=== PATIENT | female | born 1975 | race Caucasian/White ===

== ENCOUNTER 2017-01-04 18:55 | Emergency (ER) | payer MEDICAID ==
[2017-01-04 19:00] VITALS: O2SAT 99
--- NOTE | 2017-01-04 19:17 | EDPHY ---
H & P Stated Complaint: Dizzy, weakness, night sweats x 2 weeks Time Seen by Provider: 01/04/17 19:16 HPI/ROS: CHIEF COMPLAINT: Anxiety, generalized weakness HISTORY OF PRESENT ILLNESS: The patient presents to the ED with a 2 day history of episodic anxiety and generalized weakness. The patient is currently staying in a half-way house and has been there for the past 2 months. She does have a remote history of alcohol dependence and alcohol withdrawal but reports she has not had a drink in over 2 months. The patient denies any fever, cough, congestion, abdominal pain, vomiting or diarrhea. The patient has been compliant with her regular medications. The patient denies any fall or trauma. She has no complaints of an acute headache or acute neurologic symptoms. REVIEW OF SYSTEMS: A comprehensive 10 point review of systems is otherwise negative aside from elements mentioned in the history of present illness. Source: Patient Exam Limitations: No limitations - Personal History LMP (Females 10-55): 8-14 Days Ago Current Tetanus/Diphtheria Vaccine: Yes Current Tetanus Diphtheria and Acellular Pertussis (TDAP): Yes Tetanus Vaccine Date: < 10 YEARS - Medical/Surgical History Hx Asthma: No Hx Chronic Respiratory Disease: No Hx Diabetes: No Hx Cardiac Disease: No Hx Renal Disease: No Hx Cirrhosis: No Hx Alcoholism: Yes Hx HIV/AIDS: No Hx Splenectomy or Spleen Trauma: No Other PMH: HTN/depression, ALCOHOLIC - Social History Smoking Status: Never smoked - Physical Exam Exam: General Appearance: Alert, slightly anxious Eyes: Pupils equal and round no pallor or injection ENT, Mouth: Mucous membranes moist Respiratory: There are no retractions, lungs are clear to auscultation Cardiovascular: Regular rate and rhythm Gastrointestinal: Abdomen is soft and nontender, no masses, bowel sounds normal Neurological: A&O, normal motor function, normal sensory exam, normal cranial nerves Skin: Warm and dry, no rashes Musculoskeletal: Neck is supple nontender Extremities: symmetrical, full range of motion Constitutional: Initial Vital Signs Temperature (C) 36.8 C 01/04/17 18:56 Heart Rate 93 01/04/17 18:56 Respiratory Rate 18 01/04/17 18:56 Blood Pressure 115/92 H 01/04/17 18:56 O2 Sat (%) 99 01/04/17 18:56 O2 Delivery Mode Room Air Allergies/Adverse Reactions: No Known Allergies Allergy (Verified 06/08/14 12:37) Home Medications: Medication Instructions Recorded Hydrochlorothiazide 25 mg PO DAILY 11/02/12 [Hydrochlorothiazide 25 MG (RX)] Metoprolol Succinate 50 mg PO DAILY #7 tab.er.24h 11/02/12 Venlafaxine Xr [Effexor Xr 75MG 150 mg PO DAILY #7 cap 12/26/12 (RX)] LORazepam [Ativan] 1 mg PO Q8 PRN #4 tab 06/08/14 Hydrocodone/APAP 5/325 [[place] 1 - 2 tab PO Q4 #13 tab 01/14/16 5/325 (RX)] LORazepam [Ativan] 1 mg PO BID PRN #10 tab 01/04/17 Medical Decision Making ED Course/Re-evaluation: The patient presents to the ED with likely situational anxiety. She is well- appearing with stable vital signs. She has no clinical evidence of pneumonia, upper respiratory infection, an acute abdomen or acute neurologic condition. The patient was given 1 mg of oral Ativan. The patient was re-evaluated at 8:30 p.m. and is currently feeling better. At this point time I do feel she can safely be discharged home. I will provide her a short course of Ativan. Would clearly like her to return to the emergency department for any fever, difficulty breathing, pain or worsening symptoms. Differential Diagnosis: Differential diagnosis considered includes influenza, viral syndrome, anxiety, dehydration - Data Points Medications Given: Discontinued Medications Lorazepam (Ativan) 1 mg PO ONCE ONE Stop: 01/04/17 19:24 Last Admin: 01/04/17 19:31 Dose: 1 mg Departure - Departure Disposition: Home, Routine, Self-Care Clinical Impression: Anxiety Condition: Good Instructions: Anxiety (ED) Additional Instructions: 1. Please use Ativan as needed for anxiety for next 2 days. 2. Please return to the ED for fever, pain, difficulty breathing, worsening symptoms or other concerns. 3. Please follow up with your regular physician as needed. Referrals: Sandra Leigh, PAC [Primary Care Provider] - As per Instructions
[2017-01-04] MEDS ORDERED: LORazepam 1 MG TAB PO ONE (19:23)
[2017-01-04 20:41] VITALS: BP 132/91; PULSE 85; RESP 20; TEMP 98.1
== END 2017-01-04 20:40 | disposition home or self-care (01) ==
DX: F41.9 Anxiety disorder, unspecified (principal); I10 Essential (primary) hypertension

== ENCOUNTER 2017-03-28 08:53 | Emergency (ER) | payer MEDICAID ==
--- NOTE | 2017-03-28 09:04 | EDPHY ---
H & P Time Seen by Provider: 03/28/17 09:02 HPI/ROS: CHIEF COMPLAINT: Influenza like illness symptoms HISTORY OF PRESENT ILLNESS: 41-year-old immunocompetent female complaining of 2 days of influenza like symptoms including nonproductive cough, myalgias , congestion, subjective fever , chills. No rhinorrhea. No abdominal pain. No chest pain. No back pain. No flank pain. No urinary abnormality. No rash. No headache. No nuchal rigidity. She is currently living in a [facility]pc house and notes that they recommend she come to the ER to get tested as well as there are numerous female there including a female PRIMARY CARE PROVIDER: REVIEW OF SYSTEMS: A ten point review of systems was performed and is negative with the exception of the items mentioned in the HPI PAST MEDICAL & SURGICAL HISTORY: diagnosed 2 days ago with influenza SOCIAL HISTORY: nonsmoker. . Currently living in a [facility]pc house PHYSICAL EXAM (Prior to examination, patient consented to physical exam, hands were washed and my usual and customary physical exam procedures followed) 1) GENERAL: Well-developed, well-nourished, alert and oriented. Appears nontoxic. 2) HEAD: Normocephalic, atraumatic 3) HEENT: Pupils equal, round, reactive to light bilaterally. Sclera anicteric. Nasopharynx, oropharynx, clear, no lesions. Ears bilaterally with normal tympanic membranes. 4) NECK: Full range of motion, no meningeal signs. 5) LUNGS: Clear auscultation bilaterally, no wheezes, no rhonchi, no retractions. 6) HEART: Regular rate and rhythm, no murmur, no heave, no gallop. 7) ABDOMEN: No guarding, no rebound, no focal tenderness, negative McBurney's, unable to elicit any abdominal pain on exam, 8) MUSCULOSKELETAL: No peripheral edema or discoloration. 9) BACK: No CVA tenderness. 10) SKIN: No rash, no petechiae. 11) Psychiatric: Patient is oriented X 3, there is no agitation. Answering questions appropriately DIFFERENTIAL DIAGNOSIS: in no particular include but not limited to viral URI , meningitis, influenza, pneumonia, bronchitis Smoking Status: Never smoked Constitutional: Initial Vital Signs Temperature (C) 37.4 C 03/28/17 08:55 Heart Rate 96 03/28/17 08:55 Respiratory Rate 14 03/28/17 08:55 Blood Pressure 132/96 H 03/28/17 08:55 O2 Sat (%) 95 03/28/17 08:55 O2 Delivery Mode Room Air Allergies/Adverse Reactions: No Known Allergies Allergy (Verified 06/08/14 12:37) Home Medications: Medication Instructions Recorded Hydrochlorothiazide 25 mg PO DAILY 11/02/12 [Hydrochlorothiazide 25 MG (RX)] Metoprolol Succinate 50 mg PO DAILY #7 tab.er.24h 11/02/12 Venlafaxine Xr [Effexor Xr 75MG 150 mg PO DAILY #7 cap 12/26/12 (RX)] LORazepam [Ativan] 1 mg PO Q8 PRN #4 tab 06/08/14 Hydrocodone/APAP 5/325 [[place] 1 - 2 tab PO Q4 #13 tab 01/14/16 5/325 (RX)] LORazepam [Ativan] 1 mg PO BID PRN #10 tab 01/04/17 Albuterol [Proventil Inhaler HFA 1 - 2 puffs IH Q4PRN PRN #1 mdi 03/28/17 (*)] Benzonatate [Tessalon Pearles (RX)] 200 mg PO TID PRN #15 cap 03/28/17 Oseltamivir Phosphate [Tamiflu] 75 mg PO BIDMEAL 5 Days 03/28/17 MDM/Departure - [facility] ED Course/Re-evaluation: The patient does not appear septic. Doubt sepsis. Doubt meningitis. Influenza nasal swab has been obtained and was informed at 10:25 a.m. that rapid influenza testing is no longer performed by laboratory and that results may be delayed for several hours. Her was diagnosed with influenza 2 days ago and she is currently symptomatic with influenza like illness symptoms. I think that empiric treatment is appropriate for this patient. I do not think that chest x-ray is indicated as she has her lungs are clear and she is maintain normal saturations. I do not think that lumbar puncture is indicated as I doubt meningitis. She feels comfortable being discharged with my usual and customary influenza like illness precautions. All questions and concerns addressed by myself. We will have the patient contact the emergency department for results. - Depart Disposition: Home, Routine, Self-Care Clinical Impression: Exposure to influenza, Influenza-like illness Condition: Good Instructions: Influenza (ED) Additional Instructions: Return to the emergency department immediately for change in breathing habits, change in voice, change in swallowing habits, change in mental status, or any other symptoms that concern you. Prescriptions: Albuterol [Proventil Inhaler HFA (*)] 1 - 2 puffs IH Q4PRN PRN #1 mdi PRN Reason: Cough, Moderate Benzonatate [Tessalon Pearles (RX)] 200 mg PO TID PRN #15 cap PRN Reason: Cough, Moderate Oseltamivir Phosphate [Tamiflu] 75 mg PO BIDMEAL 5 Days Referrals: Sandra Leigh, PAC [Primary Care Provider] - 2-3 days, call for appt.
[2017-03-28 11:23] VITALS: BP 130/90; PULSE 87; RESP 15; TEMP 98.8; O2SAT 98
== END 2017-03-28 11:23 | disposition home or self-care (01) ==
DX: Z20.828 Contact with and (suspected) exposure to other viral communicable diseases (principal)

== ENCOUNTER 2017-12-29 10:50 | Emergency (ER) | payer MEDICAID ==
[2017-12-29 11:00] VITALS: RESP 16; TEMP 98.1; O2SAT 97
--- NOTE | 2017-12-29 13:10 | EDPHY ---
H & P Time Seen by Provider: 12/29/17 12:10 HPI/ROS: CHIEF COMPLAINT: Anxiety HISTORY OF PRESENT ILLNESS: 42-year-old female with a history of anxiety presents with increased anxiety. She awoke at 4:00 a.m. with dizziness, vomiting and anxiety. The anxiety was moderate to severe and unrelenting. Unable to sleep. The symptoms are typical of her usual anxiety attacks. She takes Effexor daily, with some relief of anxiety. She is scheduled to see Dr. Cohen at [facility] for further eval of anxiety on 01/15/2018. She also has nasal pain and intermittent nosebleeds, after having a nasal cannulae placed several weeks ago. REVIEW OF SYSTEMS: Constitutional: No fever, no chills Eyes: No visual changes Respiratory: No cough, no shortness of breath Cardiac: No chest pain Gastrointestinal: no abdominal pain Genitourinary: no dysuria Musculoskeletal: No leg pain or swelling Skin: No rash Neurological: No headache, no weakness Past Medical/Surgical History: Anxiety disorder Social History: Sober for 2 years Smoking Status: Never smoked Physical Exam: General Appearance: Alert, pleasant Eyes: Pupils equal and round, no conjunctival pallor ENT, Mouth: nasal septum is erythematous Neck: Normal inspection Respiratory: Lungs are clear to auscultation Cardiovascular: Regular rate and rhythm Gastrointestinal: Abdomen is soft and nontender Neurological: A&O, nonfocal exam Skin: Warm and dry, no rash Extremities: Normal inspection Psychiatric: anxious Constitutional: Initial Vital Signs Temperature (C) 36.7 C 12/29/17 10:57 Heart Rate 84 12/29/17 10:57 Respiratory Rate 16 12/29/17 10:57 Blood Pressure 125/96 H 12/29/17 10:57 O2 Sat (%) 97 12/29/17 10:57 O2 Delivery Mode Room Air Allergies/Adverse Reactions: No Known Allergies Allergy (Verified 12/29/17 10:56) Home Medications: Medication Instructions Recorded Hydrochlorothiazide 25 mg PO DAILY 11/02/12 [Hydrochlorothiazide 25 MG (RX)] Metoprolol Succinate 50 mg PO DAILY #7 tab.er.24h 11/02/12 Venlafaxine Xr [Effexor Xr 75MG 150 mg PO DAILY #7 cap 12/26/12 (RX)] Albuterol [Proventil Inhaler HFA 1 - 2 puffs IH Q4PRN PRN #1 mdi 03/28/17 (*)] LORazepam [Ativan (RX)] 1 mg PO Q12 PRN #10 tab 12/29/17 Lisinopril 12/29/17 Mupirocin Calcium [Bactroban Nasal] 1 abran NS BID #1 tube 12/29/17 Medical Decision Making ED Course/Re-evaluation: This patient presents with increased anxiety. Ativan 1mg orally given and Ativan prescribed. Will f/u with mental health. She also has an intranasal infection, possibly secondary to MRSA. Bactroban ointment prescribed. Will follow up with ENT. Departure - Departure Disposition: Home, Routine, Self-Care Clinical Impression: Anxiety Condition: Good Instructions: Anxiety (ED) Additional Instructions: Keep your appointment with Dr. Sotelo. Return with any concerns. Use the antibiotic cream as prescribed. Referrals: Sandra Leigh, PAC [Primary Care Provider] - As per Instructions Estefani Fletcher, PAC [Physician Music Sound Light Technician] - As per Instructions (Call to make an appointment.) Prescriptions: LORazepam [Ativan (RX)] 1 mg PO Q12 PRN #10 tab PRN Reason: Anxiety Mupirocin Calcium [Bactroban Nasal] 1 abran NS BID #1 tube
[2017-12-29 13:48] VITALS: BP 121/90; PULSE 80
== END 2017-12-29 13:46 | disposition home or self-care (01) ==
DX: F41.9 Anxiety disorder, unspecified (principal)